=== PATIENT | male | born 1995 | race Two or more races ===

== ENCOUNTER 2021-08-26 13:31 | Observation (INO) ==
[2021-08-26] MEDS ORDERED: SODIUM CHLORIDE 0.9% 1000ML 1,000 ML IV SCH (13:33)
[2021-08-26 13:48] LABS: Basophils # (auto) 0.04 K/uL (0-0.2); Basophils % (auto) 0.2 %; Eosinophils # (auto) 0.01 K/uL (0-0.5); Eosinophils % (auto) 0.1 %; Hematocrit (blood only) 45.4 % (42-52); Hemoglobin 16.4 g/dL (14.0-18.0); Immature Granulocytes # (auto) 0.03 K/uL (0.00-0.02); Immature Granulocytes % (auto) 0.2 %; Lymphocytes # (auto) 2.31 K/uL (1.2-3.4); Lymphocytes % (auto) 13.1 %; Mean Corpuscular Hemoglobin 33.7 pg (25-34); Mean Corpuscular Hgb Conc 36.1 g/dL (32-36); Mean Corpuscular Volume 93.2 fL (80-100); Mean Platelet Volume 10.5 fL (7.4-10.4); Monocytes # (auto) 1.39 K/uL (0.11-0.59); Monocytes % (auto) 7.9 %; Neutrophils # (auto) 13.83 K/uL (1.4-6.5); Neutrophils % (auto) 78.5 %; Platelet Count 229 K/uL (130-400); RDW Coefficient of Variation 12.8 % (11.5-14.5); RDW Standard Deviation 43.9 fL (36.4-46.3); Red Blood Count 4.87 M/uL (4.7-6.1); White Blood Count 17.61 K/uL (4.8-10.8)
[2021-08-26] MEDS ORDERED: OPTIRAY 320 125ml IV ONE (14:03)
--- NOTE | 2021-08-26 14:18 | Emergency Department Note ---
Impression & Plan Acute appendicitis, RLQ abdominal pain ED Provider Note NAME: ELLE [id number] CHERYLE AGE: 26 SEX: M : 1995 ARRIVES VIA: Ambulance INFORMANT: Patient ED PROVIDER(S): Mp Alejo DO CHIEF COMPLAINT: Right lower quadrant abdominal pain HPI: Patient is a 26-year-old male who presents to the ER for right lower quadrant abdominal pain. Symptoms started within the past 24 hours. He denies any vomiting. No dysuria, urgency, or frequency. It is worse with movement but improves with rest. Pain is a 5 out of 10. Denies any headache or change in vision. No chest pain or shortness of breath. Patient was sent in from the senior living. No other exacerbating or remitting factors. No previous abdominal surgeries. ROS: See above HPI for pertinent positives & negatives. A total of 10 systems reviewed and were otherwise negative. PAST MEDICAL HISTORY:See Below PAST SURGICAL HISTORY:See Below FAMILY HISTORY:See Below SOCIAL HISTORY:See Below HOME MEDICATIONS:See Below ALLERGIES:See Below VITALS:See Below PHYSICAL EXAMINATION: GENERAL: Sitting up in bed, alert, well appearing, well nourished, no distress, non-toxic EYE EXAM: normal conjunctiva. [PERRL and EOM's grossly intact.] OROPHARYNX: no exudate, no erythema, lips, buccal mucosa, and tongue normal and mucous membranes are moist NECK: supple, no nuchal rigidity, no adenopathy, non-tender LUNGS: Clear to auscultation. Normal chest wall mechanics HEART: no murmurs, S1 normal and S2 normal ABDOMEN: abdomen soft, tender palpation right lower quadrant, normo-active bowel sounds, no masses, no rebound or guarding. UPPER EXTREMITIES: upper extremities are grossly normal. LOWER EXTREMITIES: No pitting edema. NEURO EXAM: Normal sensorium, cranial nerves II-XII grossly intact, normal s peech, no gross weakness of arms, no gross weakness of legs. MEDICAL DECISION MAKING: Patient is a 26-year-old male who presents ER for right lower quadrant abdominal pain sent in by the senior living. On exam he is clearly tender to palpation. Borderline febrile. IV was established blood work is obtained. Labs show leukocytosis 15,000. No significant anemia. BMP with mild hyponatremia 135. LFTs were unremarkable. T bili slightly up at 2.1. Lipase was normal. UA was clean. Covid negative. CT abdomen pelvis shows acute appendicitis. He was given IV fluids but declined morphine. He was given 2 g of cefoxitin. He was updated bedside and. Discussed with general surgery who evaluated him and took him to the OR. Triage Nursing notes reviewed. Limited review of prior medical records performed Vital Signs: reviewed and remarkable for tachy, HTN Differential diagnosis: Differential diagnoses includes but is not limited to gastritis, peptic ulcer disease, GERD, gallbladder disease, pancreatitis, small bowel obstruction, acute coronary syndrome, pericarditis, ischemic bowel, irritable bowel disease, ir ritable bowel syndrome, appendicitis, diverticulitis, malignancy, hernia, urinary tract infection, torsion, perforation, trauma, infectious. ER treatment provided: See below Diagnostics interpreted by me: ECG: none Cardiac Monitoring: An order was placed for continuous cardiac monitoring. The monitor shows a rate of 92 with sinus rhythm. Laboratory studies: As stated above and show below. Imaging studies: CT abdomen pelvis shows acute appendicitis Consultation(s): This with general surgery for further evaluation Procedures: none Critical Care: None Past Med/Surg History Medical History (Updated 08/26/21 @ 15:53 by Mp Alejo DO) Asthma Social History Smoking Status: Never smoker Tobacco Type: E-cigarettes / Vaping Communication Tools: IPad Feels Safe at Home: Yes Allergies Allergies Allergy/AdvReac Type Severity Reaction Status Date / Time No Known Drug Allergies Allergy Unknown Unknown Unverified 08/26/21 15:42 shellfish derived Allergy Verified 08/26/21 15:42 Home Meds Home Medications Medication Instructions Recorded Confirmed levalbuterol tartrate 45 2 inh INHALATION Q6H PRN 08/26/21 08/26/21 mcg/actuation aerosol inhaler (Xopenex HFA) Results & Data (ED) Vital Signs Vital Signs - 24 hr 08/26/21 13:25 08/26/21 14:43 08/26/21 15:45 Temperature 37.6 C H Temperature Source Oral Pulse Rate 102 H 77 Pulse Rate [Finger] 80 Pulse Rhythm Regular Pulse Rhythm [Finger] Regular Pulse Strength [Finger] Normal Respiratory Rate 20 18 18 Respiratory Effort / Characteristics Non-Labored Non-Labored Respiratory Depth Normal Normal Blood Pressure 143/74 H Blood Pressure [Right Arm] 165/100 H Blood Pressure Mean 97 Blood Pressure Mean [Right Arm] 121 Blood Pressure Position [Right Arm] Lying Pulse Oximetry 98 99 99 Oxygen Delivery Method Room Air Room Air Room Air Sepsis Recent Fever Within 48 Hours No Sepsis New/Unexplained Change in Mental Status N/A Sepsis Action Taken by Nursing No Action Required Laboratory Data Result diagrams: 08/26/21 13:40 08/26/21 13:40 Lab Results 08/26/21 08/26/21 08/26/21 Range/Units 13:40 13:40 13:45 WBC 17.61 H (4.8-10.8) K/uL RBC 4.87 (4.7-6.1) M/uL Hgb 16.4 (14.0-18.0) g/dL POC Hgb 15.6 (14.0-18.0) g/dl Hct 45.4 (42-52) % POC Hct 46 (42-52) % MCV 93.2 (80-100) fL MCH 33.7 (25-34) pg MCHC 36.1 H (32-36) g/dL RDW Std Deviation 43.9 (36.4-46.3) fL RDW Coeff of Veronika 12.8 (11.5-14.5) % Plt Count 229 (130-400) K/uL MPV 10.5 H (7.4-10.4) fL Immature Gran % (Auto) 0.2 % Neut % (Auto) 78.5 % Lymph % (Auto) 13.1 % Mcintosh % (Auto) 7.9 % Eos % (Auto) 0.1 % Baso % (Auto) 0.2 % Neut # (Auto) 13.83 H (1.4-6.5) K/uL Lymph # (Auto) 2.31 (1.2-3.4) K/uL Mc[place]osh # (Auto) 1.39 H (0.11-0.59) K/uL Eos # (Auto) 0.01 (0-0.5) K/uL Baso # (Auto) 0.04 (0-0.2) K/uL Immature Gran # (Auto) 0.03 H (0.00-0.02) K/uL POC Sodium 139 (135-144) mmol/L Sodium 135 L (136-145) mmol/L POC Potassium 3.7 (3.3-5.0) mmol/L Potassium 3.7 (3.5-5.1) mmol/L POC Chloride 99 L (101-112) mmol/L Chloride 102 (98-107) mmol/L Carbon Dioxide 28 (21-32) mmol/L POC Total CO2 26 (24-31) mmol/L Anion Gap 5 (3-11) POC Anion Gap 18.0 (16-25) mmol/L POC BUN 10 (7-18) mg/dl BUN 10 (6-23) mg/dl Creatinine 0.86 (0.6-1.4) mg/dl POC Creatinine 0.9 (0.6-1.3) mg/dl Est Cr Clr Drug Dosing 193.2 ml/min Est GFR ( Amer) 139.7 ml/min Est GFR (Non-Af Amer) 120.5 ml/min BUN/Creatinine Ratio 11.6 (10-20) Glucose 128 H (70-99(Fasting)) mg/dl POC Glucose (other) 132 H (70-99) mg/dl Calcium 9.9 (8.5-10.1) mg/dl POC Ioniz Calcium Na 1.27 (1.12-1.32) mmol/l Total Bilirubin 2.1 H (0.2-1.0) mg/dl AST 28 (13-39) U/L ALT 60 H (7-52) U/L Alkaline Phosphatase 94 (34-104) U/L Total Protein 7.5 (6.0-8.3) gm/dl Albumin 4.3 (3.4-5.0) gm/dl Globulin 3.2 (2.5-4.0) gm/dl Albumin/Globulin Ratio 1.3 (0.9-2) Lipase 20 (11-82) U/L Urine Color Urine Appearance (Clear) Urine pH (4.5-7.5) Ur Specific [place] (1.000-1.030) Urine Protein (Negative) Urine Glucose (UA) (Negative) Urine Ketones (Negative) Urine Blood (Negative) Urine Nitrite (Negative) Urine Bilirubin (Negative) Urine Urobilinogen (Negative) Ur Leukocyte Esterase (Negative) SARS-CoV-2, RNA, NAAT (NEGATIVE) 08/26/21 08/26/21 Range/Units 14:55 14:55 WBC (4.8-10.8) K/uL RBC (4.7-6.1) M/uL Hgb (14.0-18.0) g/dL POC Hgb (14.0-18.0) g/dl Hct (42-52) % POC Hct (42-52) % MCV (80-100) fL MCH (25-34) pg MCHC (32-36) g/dL RDW Std Deviation (36.4-46.3) fL RDW Coeff of Veronika (11.5-14.5) % Plt Count (130-400) K/uL MPV (7.4-10.4) fL Immature Gran % (Auto) % Neut % (Auto) % Lymph % (Auto) % Mcintosh % (Auto) % Eos % (Auto) % Baso % (Auto) % Neut # (Auto) (1.4-6.5) K/uL Lymph # (Auto) (1.2-3.4) K/uL [place]osh # (Auto) (0.11-0.59) K/uL Eos # (Auto) (0-0.5) K/uL Baso # (Auto) (0-0.2) K/uL Immature Gran # (Auto) (0.00-0.02) K/uL POC Sodium (135-144) mmol/L Sodium (136-145) mmol/L POC Potassium (3.3-5.0) mmol/L Potassium (3.5-5.1) mmol/L POC Chloride (101-112) mmol/L Chloride (98-107) mmol/L Carbon Dioxide (21-32) mmol/L POC Total CO2 (24-31) mmol/L Anion Gap (3-11) POC Anion Gap (16-25) mmol/L POC BUN (7-18) mg/dl BUN (6-23) mg/dl Creatinine (0.6-1.4) mg/dl POC Creatinine (0.6-1.3) mg/dl Est Cr Clr Drug Dosing ml/min Est GFR ( Amer) ml/min Est GFR (Non-Af Amer) ml/min BUN/Creatinine Ratio (10-20) Glucose (70-99(Fasting)) mg/dl POC Glucose (other) (70-99) mg/dl Calcium (8.5-10.1) mg/dl POC Ioniz Calcium Na (1.12-1.32) mmol/l Total Bilirubin (0.2-1.0) mg/dl AST (13-39) U/L ALT (7-52) U/L Alkaline Phosphatase (34-104) U/L Total Protein (6.0-8.3) gm/dl Albumin (3.4-5.0) gm/dl Globulin (2.5-4.0) gm/dl Albumin/Globulin Ratio (0.9-2) Lipase (11-82) U/L Urine Color Yellow Urine Appearance Clear (Clear) Urine pH 7.0 (4.5-7.5) Ur Specific [place] 1.015 (1.000-1.030) Urine Protein Negative (Negative) Urine Glucose (UA) Negative (Negative) Urine Ketones Negative (Negative) Urine Blood Negative (Negative) Urine Nitrite Negative (Negative) Urine Bilirubin Negative (Negative) Urine Urobilinogen Negative (Negative) Ur Leukocyte Esterase Negative (Negative) SARS-CoV-2, RNA, NAAT NEGATIVE (NEGATIVE) Administered Medications Discontinued Medications Sodium Chloride (Nss 1000ml) 1,000 mls @ 999 mls/hr IV .Q1H1M LIZETTE Stop: 08/26/21 14:33 Last Admin: 08/26/21 14:51 Dose: 999 mls/hr Documented by: [id number] Cefoxitin Sodium (Mefoxin) 2,000 mg in 60 mls @ 100 mls/hr IV NOW STA Stop: 08/26/21 15:00 Last Infusion: 08/26/21 15:24 Dose: 100 mls/hr Documented by: [id number] Admin: 08/26/21 14:48 Dose: 100 mls/hr Documented by: [id number] Ioversol (Optiray 320 125ml) 118 ml IV ONCE ONE Stop: 08/26/21 14:04 Last Admin: 08/26/21 14:04 Dose: 118 ml Documented by: [id number] Ondansetron HCl (Ondansetron Inj 2 Mg/Ml 2 Ml Vial) 4 mg IV NOW STA Stop: 08/26/21 14:26 Last Admin: 08/26/21 14:48 Dose: 4 mg Documented by: [id number] Imaging Data Radiologist's Impression: Abdomen/Pelvis CT 08/26/21 13:32 CT OF THE ABDOMEN AND PELVIS WITH CONTRAST CLINICAL HISTORY: Right lower quadrant abdominal pain. COMPARISON STUDY: None. TECHNIQUE: Following IV administration of 118 mL of Optiray, axial images of the abdomen and pelvis were obtained from the lung bases to the proximal femurs. Images were reviewed in the axial, sagittal, and coronal planes. IV contrast was administered without complication. Automated exposure control was utilized for the study. A dose lowering technique was utilized adhering to the principles of ALARA. CT DOSE: 1609.93 mGy.cm FINDINGS: Lung bases are unremarkable. No pneumatosis, free air or portal venous gas is present. There are suspected bilateral gynecomastia. Hepatic steatosis and hepatomegaly are noted. The spleen, adrenal glands, left kidney and pancreas are unremarkable. 2 mm right renal calculus is present. There are no ureteral calculi and there is no hydronephrosis. There is no evidence for a bowel obstruction. The appendix is mildly dilated, measuring 1 cm in caliber. The appendiceal wall is thickened with periappendiceal stranding. No free air or abscess. No lymphadenopathy is present. Bladder is mildly distended. No acute fracture or suspicious lesion is identified within the visualized skeletal structures. IMPRESSION: 1. Findings consistent with acute appendicitis. No free air or abscess. 2. 2 mm right renal calculus. No ureteral calculi or hydronephrosis. 3. Hepatic steatosis and hepatomegaly. ACT 112: Negative or not required by law. Electronically signed by: Scar Augustin M.D. 08/26/2021 2:17 PM Discharge Plan Visit Data Chief Complaint: Abdominal Pain Stated Complaint: AB PAIN ED Provider: Mp Alejo Discharge Problem: Acute appendicitis, RLQ abdominal pain Forms Stand Alone Forms: My [place] Prescriptions Prescriptions: No Action levalbuterol tartrate [Xopenex HFA] 45 mcg/actuation Hfa Aerosol Inhaler 2 inh INHALATION Q6H PRN (Reason: SOB) RF: 0 Referrals Referrals: Shereen HARTLEY [Primary Care Provider] -
--- NOTE | 2021-08-26 14:18 | CT Scan Report ---
CT OF THE ABDOMEN AND PELVIS WITH CONTRAST CLINICAL HISTORY: Right lower quadrant abdominal pain. COMPARISON STUDY: None. TECHNIQUE: Following IV administration of 118 mL of Optiray, axial images of the abdomen and pelvis w ere obtained from the lung bases to the proximal femurs. Images were reviewed in the axial, sagittal, and coronal planes. IV contrast was administered without complication. Automated exposure control w as utilized for the study. A dose lowering technique was utilized adhering to the principles of CHARLEEN Oconnell. CT DOSE: 1609.93 mGy.cm FINDINGS: Lung bases are unremarkable. No pneumatosis, free air or portal venous gas is present. Ther e are suspected bilateral gynecomastia. Hepatic steatosis and hepatomegaly are noted. The spleen, adr enal glands, left kidney and pancreas are unremarkable. 2 mm right renal calculus is present. There a re no ureteral calculi and there is no hydronephrosis. There is no evidence for a bowel obstruction. The appendix is mildly dilated, measuring 1 cm in caliber. The appendiceal wall is thickened with per iappendiceal stranding. No free air or abscess. No lymphadenopathy is present. Bladder is mildly dist ended. No acute fracture or suspicious lesion is identified within the visualized skeletal structures . IMPRESSION: 1. Findings consistent with acute appendicitis. No free air or abscess. 2. 2 mm right renal calculus. No ureteral calculi or hydronephrosis. 3. Hepatic steatosis and hepatomegaly. ACT 112: Negative or not required by law. Electronically signed by: Scar Augustin M.D. 08/26/2021 2:17 PM
[2021-08-26] MEDS ORDERED: MoRPHine SULFATE 4 MG/ML 1 ML CARP\\VIAL IV STA (14:25)
[2021-08-26] MEDS ORDERED: ONDANSETRON INJ 2 MG/ML 2 ML VIAL IV STA (14:25)
[2021-08-26] MEDS ORDERED: cefOXitin 2,000 MG/60 ML BAG IV STA (14:25)
[2021-08-26 14:27] LABS: Albumin Globulin Ratio 1.3 (0.9-2); Albumin Level 4.3 gm/dl (3.4-5.0); BUN Creatinine Ratio 11.6 (10-20); Bilirubin,Total 2.1 mg/dl (0.2-1.0); Calcium 9.9 mg/dl (8.5-10.1); Creatinine Clr Calc Pharmacy 193.2 ml/min; Est GFR (African American) 139.7 ml/min; Est GFR (Non-African American) 120.5 ml/min; Globulin 3.2 gm/dl (2.5-4.0); Potassium 3.7 mmol/L (3.5-5.1); Total Protein 7.5 gm/dl (6.0-8.3)
--- NOTE | 2021-08-26 14:34 | History & Physical Report ---
Date of Service August 26, 2021 Assessment & Plan (1) Acute appendicitis: (2) RLQ abdominal pain: Admission and Anticipated Discharge Date Admission Date: 26 year-old male from [facility] with 24 hours history of RLQ abdominal pain with associated anorexia. CT scan showing acute appendicitis without perforation or abscess. Leukocytosis of 17K. Examination consistent with appendicitis with tenderness in RLQ. Plan: Discussed with patient CT scan findings, laboratory findings and examination consistent with acute appendicitis. Discussed laparoscopic appendectomy possible open, risks of procedure and expected recovery/restrictions. Dr. Coulter also examined patient and recommend laparoscopic appendectomy. Obtained informed consent preop COVID testing Cefoxitin and IV fluids keep npo Depending on intraoperative findings, likely discharge to shelter tomorrow Dr. Coulter has seen and examined patient, agrees with above. History of Present Illness Chief Complaint: Right lower quadrant abdominal pain Primary Care Provider: [facility] Payal is a 26 year-old male who presented to emergency department from [facility] with 24 hour history of abdominal pain and associated anorexia. History obtained with help of center medical specialist as patient speaks [place]. No fever, chills, nausea, or vomiting. Pain severe initially but now improved. Worse with movement. Denies of any similar pain in the past. Denies of any abdominal surgeries. Last bowel movement was this morning, soft and no blood. No blood in urine but some abdominal pain when trying to urinate this morning. Allergies Allergy/AdvReac Type Severity Reaction Status Date / Time shellfish derived Allergy Verified 08/26/21 15:10 Past Med/Surg History Medical History (Updated 08/26/21 @ 15:12 by Peggy Fernandez PA-C) Asthma Social History Smoking Status: Never smoker Tobacco Type: E-cigarettes / Vaping Communication Tools: IPad Feels Safe at Home: Yes Review of Systems Review of Systems: All systems reviewed & are unremarkable except as noted in HPI & below Physical Exam Constitutional: well developed, well nourished and + obese; no acute distress and not ill appearing Respiratory: normal respiratory effort, lungs clear to auscultation Cardiovascular: RRR, no murmur, no edema Gastrointestinal (Abdomen): Inspection/Auscultation: abdomen normal to in spection and + hypoactive bowel sounds; abdomen not distended and + abnormal bowel sounds Percussion/Palpation: + abdomen tender (RLQ on mild palpation, + Rosvigs sign), + guarding (voluntary in the RLQ) and abdomen soft; abdomen not rigid Skin: no rashes, warm and dry Psychiatric: Orientation: alert and oriented x 3 Results & Data Results & Data ([facility]) Vital Signs (Past 12 Hours) Vital Signs Temp Pulse Resp BP Pulse Ox 08/26/21 13:25 37.6 C H 102 H 20 143/74 H 98 Laboratory Results 08/26/21 08/26/21 Range/Units 13:40 13:40 WBC 17.61 H (4.8-10.8) K/uL RBC 4.87 (4.7-6.1) M/uL Hgb 16.4 (14.0-18.0) g/dL Hct 45.4 (42-52) % MCV 93.2 (80-100) fL MCH 33.7 (25-34) pg MCHC 36.1 H (32-36) g/dL RDW Std Deviation 43.9 (36.4-46.3) fL RDW Coeff of Veronika 12.8 (11.5-14.5) % Plt Count 229 (130-400) K/uL MPV 10.5 H (7.4-10.4) fL Immature Gran % (Auto) 0.2 % Neut % (Auto) 78.5 % Lymph % (Auto) 13.1 % [place] % (Auto) 7.9 % Eos % (Auto) 0.1 % Baso % (Auto) 0.2 % Neut # (Auto) 13.83 H (1.4-6.5) K/uL Lymph # (Auto) 2.31 (1.2-3.4) K/uL [place] # (Auto) 1.39 H (0.11-0.59) K/uL Eos # (Auto) 0.01 (0-0.5) K/uL Baso # (Auto) 0.04 (0-0.2) K/uL Immature Gran # (Auto) 0.03 H (0.00-0.02) K/uL Sodium 135 L (136-145) mmol/L Potassium 3.7 (3.5-5.1) mmol/L Chloride 102 (98-107) mmol/L Carbon Dioxide 28 (21-32) mmol/L Anion Gap 5 (3-11) BUN 10 (6-23) mg/dl Creatinine 0.86 (0.6-1.4) mg/dl Est Cr Clr Drug Dosing 193.2 ml/min Est GFR ( Amer) 139.7 ml/min Est GFR (Non-Af Amer) 120.5 ml/min BUN/Creatinine Ratio 11.6 (10-20) Glucose 128 H (70-99(Fasting)) mg/dl Calcium 9.9 (8.5-10.1) mg/dl Total Bilirubin 2.1 H (0.2-1.0) mg/dl AST 28 (13-39) U/L ALT 60 H (7-52) U/L Alkaline Phosphatase 94 (34-104) U/L Total Protein 7.5 (6.0-8.3) gm/dl Albumin 4.3 (3.4-5.0) gm/dl Globulin 3.2 (2.5-4.0) gm/dl Albumin/Globulin Ratio 1.3 (0.9-2) Lipase 20 (11-82) U/L Diagnostic Findings CT OF THE ABDOMEN AND PELVIS WITH CONTRAST CLINICAL HISTORY: Right lower quadrant abdominal pain. COMPARISON STUDY: None. TECHNIQUE: Following IV administration of 118 mL of Optiray, axial images of the abdomen and pelvis were obtained from the lung bases to the proximal femurs. Images were reviewed in the axial, sagittal, and coronal planes. IV contrast was administered without complication. Automated exposure control was utilized for the study. A dose lowering technique was utilized adhering to the principles of ALARA. CT DOSE: 1609.93 mGy.cm FINDINGS: Lung bases are unremarkable. No pneumatosis, free air or portal venous gas is present. There are suspected bilateral gynecomastia. Hepatic steatosis and hepatomegaly are noted. The spleen, adrenal glands, left kidney and pancreas are unremarkable. 2 mm right renal calculus is present. There are no ureteral calculi and there is no hydronephrosis. There is no evidence for a bowel obstruction. The appendix is mildly dilated, measuring 1 cm in caliber. The appendiceal wall is thickened with periappendiceal stranding. No free air or abscess. No lymphadenopathy is present. Bladder is mildly distended. No acute fracture or suspicious lesion is identified within the visualized skeletal structures. IMPRESSION: 1. Findings consistent with acute appendicitis. No free air or abscess. 2. 2 mm right renal calculus. No ureteral calculi or hydronephrosis. 3. Hepatic steatosis and hepatomegaly. Code Status & VTE Plan VTE Prophylaxis Plan VTE Prophylaxis will be ordered: Yes
[2021-08-26 14:48] LABS: iSTAT Creatinine 0.9 mg/dl (0.6-1.3); iSTAT Hemoglobin 15.6 g/dl (14.0-18.0); iSTAT Ionized Calcium 1.27 mmol/l (1.12-1.32); iSTAT Potassium 3.7 mmol/L (3.3-5.0)
[2021-08-26 15:10] LABS: Appearance Urine Clear (Clear); Bilirubin Urine Negative (Negative); Blood Urine Negative (Negative); Color Urine Yellow; Glucose Urine UA Negative (Negative); Ketones Urine Negative (Negative); Leukocyte Esterase Urine Negative (Negative); Nitrite Urine Negative (Negative); Protein Urine Negative (Negative); Specific Gravity Urine 1.015 (1.000-1.030); Urobilinogen Urine Negative (Negative)
[2021-08-26] MEDS ORDERED: MIDAZOLAM HCL 1 MG/ML 2ML VIAL ONE (15:21)
[2021-08-26] MEDS ORDERED: fentaNYL citrate 100 MCG/2 ML VIAL ONE ×2 (15:21→16:43)
[2021-08-26] MEDS ORDERED: ACETAMINOPHEN 1000 MG/100 ML IV IV ONE (15:33)
[2021-08-26] MEDS ORDERED: LIDOCAINE 2% 2 ML VIAL/AMP(20MG/ML) INFIL ONE (15:34)
[2021-08-26] MEDS ORDERED: SUCCINYLCHOLINE CHLORIDE 20 MG/ML 10 ML VIAL IV ONE (15:34)
[2021-08-26] MEDS ORDERED: PROPOFOL IV EMULSION 10 MG/ML 20 ML VIAL IV ONE (15:34)
[2021-08-26] MEDS ORDERED: ROCURONIUM BROMIDE 10 MG/ML 5 ML VIAL IV ONE (15:35)
[2021-08-26] MEDS ORDERED: ONDANSETRON INJ 2 MG/ML 2 ML VIAL ONE (15:35)
[2021-08-26] MEDS ORDERED: DEXAMETHASONE SOD INJ 4 MG/ML VIAL ONE (15:35)
[2021-08-26] MEDS ORDERED: EPINEPHrine INJ 1 MG/ML AMP ONE (15:40)
[2021-08-26] MEDS ORDERED: BUPIVACAINE 0.5 % 5 MG/1 ML MPF 30ML VIAL ONE (15:40)
[2021-08-26] MEDS ORDERED: NEOSTIGMINE METHYLSULFATE 1 MG/ML 10ML VIAL ONE (16:52)
[2021-08-26] MEDS ORDERED: GLYCOPYRROLATE 0.2 MG/ML VIAL ONE (16:52)
--- NOTE | 2021-08-26 17:18 | Operative Report ---
Post Operative Report Pre & Post Diagnosis Operation Date: 08/26/21 11:20 Pre-Op Diagnosis: Apenditicitis Post-Op Diagnosis: Apenditicitis I identified the patient and participated in the time-out.: Yes Procedure Operation Date: 08/26/21 11:20 Actual Procedures p Laparoscopic Appendectomy(Not Applicable) - Bruno Coulter MD Surgeon Bruno Coulter MD Account Associate PORSCHE Fernandez assisted with tissue retraction, camera op, closure Estimated Blood Loss 5 Findings Consistent with Post-Op Diagnosis Acute appendicitis without perforation Specimens Appendix Anesthesia Type General Complications No immediate complications Description of Procedure The patient was taken to the operating room, and placed supine on the operating table. A timeout was performed, perioperative antibiotics were administered, SCD boots were placed. After adequate anesthesia and analgesia was obtained, the abdomen was prepped and draped in the normal sterile fashion. A 1 cm incision was made in the supraumbilical region and carried down to the level of the fascia. A trach hook was used to grasp the fascia and elevated and a varies needle was used to enter the abdominal cavity. The abdomen was insufflated to a pressure of 15 mmHg, and a 5 mm trocar was placed in this location. A 5 mm 30 degree laparoscope was placed into the abdominal cavity, and the abdomen was surveyed. The patient was placed in Trendelenburg and slightly to the left. One 5 mm trocar was placed in the right upper quadrant, and one 12 mm trocar was placed in the left lower quadrant under direct visualization. The right colon was identified and traced down to the cecum. The appendix was identified and elevated anteriorly and medially. A window was created at the base of the appendix with a [place] dissector. The Endo SHAMAR stapler was used to transect the appendix at its base through noninflamed tissue, and subsequently the mesoappendix. The appendix was placed in an Endo Catch bag, and removed via the left lower quadrant port site. Attention was turned to hemostasis, which was excellent. The abdomen was copiously irrigated and suctioned free, and again hemostasis was found to be excellent. All trochars removed under direct visualization. The abdomen was desufflated. The fascia in the 12 mm port site was closed with a 0 Vicryl suture. The skin was closed with a running 4-0 Monocryl subcuticular stitch. Dermabond was applied. The patient tolerated the procedure without complication, and was transferred in stable condition to the PACU. All instrument, needle, and sponge counts were correct at the end of the case. My assistant to the ceo was necessary throughout the procedure for tissue retraction, possible camera operation, and closure of the wounds. I understand that section 1842(b)(7)(D) of the Social Security act generally prohibits Medicare physician fee schedule payment for the services of assistants at surgery in teaching hospitals when qualified residents are available to furnish such services. I certify that the services for which payment is claimed were medically necessary and that no qualified resident was available to perform the services. I further understand that these services are subject to postpayment review by the Medicare carrier. I attest to the content of the Intraoperative Record and any orders documented therein. Any exceptions are noted below.
--- NOTE | 2021-08-26 17:18 | Post Operative Brief Note ---
Immediate Post Op Note v1 Date of Surgery August 26, 2021 Pre & Post Diagnosis Operation Date: 08/26/21 11:20 Pre-Op Diagnosis: Apenditicitis Post-Op Diagnosis: Apenditicitis I identified the patient and participated in the time-out.: Yes Procedure Operation Date: 08/26/21 11:20 Actual Procedures p Laparoscopic Appendectomy(Not Applicable) - Bruno Coulter MD Surgeon Bruno Coulter MD Plating Equipment Tender PORSCHE Fernandez assisted with tissue retraction, camera op, closure Estimated Blood Loss 5 Findings Consistent with Post-Op Diagnosis Drains Olivia Catheter
[2021-08-26] MEDS ORDERED: ePHEDrine sulfate 50 MG/ML AMP IV PRN (17:22)
[2021-08-26] MEDS ORDERED: ATROPINE SULFATE 0.1 MG/ML 10ML SYR IV PRN (17:22)
[2021-08-26] MEDS ORDERED: ONDANSETRON INJ 2 MG/ML 2 ML VIAL IV PRN ×2 (17:22→18:33)
[2021-08-26] MEDS ORDERED: PROMETHAZINE HCL 6.25 MG in SODIUM CHLORIDE 0.9% 50 ML IV PRN (17:22)
[2021-08-26] MEDS ORDERED: fentaNYL citrate 100 MCG/2 ML VIAL IV PRN (17:22)
--- NOTE | 2021-08-26 17:22 | Anesthesiology Consultation ---
Date of Service August 26, 2021 Assessment & Plan Chart Review Chart Review: Acceptable Risk for Surgery and Patient NOT seen in Pre Admission Testing Consults Requested none ASA ASA2 Proposed Anesthesia Anesthesia Type: General Risk / Benefits Reviewed With: PT / POA / Parent / Guardian, Accepts Plan and Informed Consent Obtained History Surgery Operation Date: 08/26/21 11:20 Proposed Procedures p Laparoscopic Appendectomy - Bruno Coulter MD Height/Weight Height: 6 ft 1 in Weight: 140.2 kg Allergies Allergy/AdvReac Type Severity Reaction Status Date / Time No Known Drug Allergies Allergy Unknown Unknown Unverified 08/26/21 15:42 shellfish derived Allergy Verified 08/26/21 15:42 Medications Home Medications Medication Instructions Recorded Confirmed Last Taken levalbuterol tartrate 45 2 inh INHALATION Q6H PRN 08/26/21 08/26/21 Unknown mcg/actuation aerosol inhaler (Xopenex HFA) NPO Date Last Intake of Fluids: 08/26/21 Time Last Intake of Fluids: 10:00 Date Last Intake of Solids: 08/26/21 Time Last Intake of Solids: 10:00 Past Medical History Medical History (Updated 08/26/21 @ 15:53 by Mp Alejo DO) Asthma Exercise / Class Metabolic Activity II 4-5 Yardwork/Stairs/Walk up hill Past Anesthesia History No Hx of Anesthesia Complications and No Family Hx of Anesthesia Complications History of PONV No Hx of PONV and No Hx of Motion Sickness Social History Smoking Status: Never smoker Physical Exam Vital Signs Last Vital Signs Temp 37 C 08/26/21 15:58 Pulse 78 08/26/21 15:58 Resp 20 08/26/21 15:58 BP 168/101 H 08/26/21 15:58 Pulse Ox 100 08/26/21 15:58 Constitutional + obese ENMT Mouth: no dentition abnormality Thyromental Distance: > or= 3.5 Finger Breadths Mallampati Class: II Neck normal visual inspection Respiratory normal respiratory effort Auscultation: lungs clear to auscultation bilaterally Cardiovascular Rate/Rhythm: regular rate and regular rhythm Psychiatric Orientation: alert Testing Laboratory Results 08/26/21 13:40 08/26/21 13:40 Urine Color Yellow 08/26/21 14:55 Urine Appearance Clear (Clear) 08/26/21 14:55 Urine pH 7.0 (4.5-7.5) 08/26/21 14:55 Ur Specific [place] 1.015 (1.000-1.030) 08/26/21 14:55 Urine Protein Negative (Negative) 08/26/21 14:55 Urine Glucose (UA) Negative (Negative) 08/26/21 14:55 Urine Ketones Negative (Negative) 08/26/21 14:55 Urine Nitrite Negative (Negative) 08/26/21 14:55 Ur Leukocyte Esterase Negative (Negative) 08/26/21 14:55 08/26/21 13:45 POC Glucose (other) 132 H
--- NOTE | 2021-08-26 18:19 | Anesthesiology Progress Note ---
Date of Service August 26, 2021 Anesthesia Post Procedure Vital Signs Vital Signs: Temp Pulse Pulse Pulse Resp BP BP 08/26/21 18:05 36.4 C L 81 16 131/72 08/26/21 17:55 63 16 130/69 08/26/21 17:45 62 16 132/73 08/26/21 17:35 36.3 C L 72 16 115/79 08/26/21 15:58 37 C 78 20 168/101 H 08/26/21 15:45 80 18 165/100 H 08/26/21 14:43 77 18 08/26/21 13:25 37.6 C H 102 H 20 143/74 H Pulse Ox 08/26/21 18:05 93 08/26/21 17:55 94 08/26/21 17:45 94 08/26/21 17:35 94 08/26/21 15:58 100 08/26/21 15:45 99 08/26/21 14:43 99 08/26/21 13:25 98 Transfer of Care Handoff Completed per policy Notes Mental Status: alert / awake / arousable Patient Amnestic to Procedure: Yes Nausea / Vomiting: adequately controlled Pain: adequately controlled Airway Patency, RR, SpO2: stable & adequate BP & HR: stable & adequate Hydration State: stable & adequate Anesthetic Complications: no major complications apparent
[2021-08-26] MEDS ORDERED: MoRPHine SULFATE 4 MG/ML 1 ML CARP\\VIAL IV PRN (18:33)
[2021-08-26] MEDS ORDERED: PROMETHAZINE HCL 12.5 MG in SODIUM CHLORIDE 0.9% 50 ML IV PRN (18:33)
[2021-08-26] MEDS ORDERED: KETOROLAC 30 MG/ML VIAL IV PRN (18:33)
[2021-08-26] MEDS ORDERED: diphenhydrAMINE Capsule 25 MG CAP PO PRN (18:33)
[2021-08-26] MEDS: oxyCODONE/ACETAMINOPHEN 5mg/325mg TAB PO PRN (23:18)
[2021-08-27] MEDS ORDERED: ENOXAPARIN INJ 40 MG/0.4 ML SYR SQ SCH (06:00)
[2021-08-27] MEDS: oxyCODONE/ACETAMINOPHEN 5mg/325mg TAB PO PRN (06:01)
--- NOTE | 2021-08-27 10:50 | Surgery Progress Note ---
Date of Service August 27, 2021 Assessment & Plan (1) Acute appendicitis: (2) RLQ abdominal pain: Plan: POD # 1 s/p laparoscopic appendectomy vss, afebrile pain minimal, controlled no n/v tolerating diet Plan: Discharge back to [facility] today discharge instructions provided and reviewed preoperatively f/u [address] Coulter has seen and examined pt. Admission and Anticipated Discharge Date Admission Date: August 26, 2021 Subjective feeling good very little pain tolerating diet no nausea Physical Exam Constitutional: WD/WN, vitals as above no acute distress and not ill appearing Respiratory: normal respiratory effort; no respiratory distress Gastrointestinal (Abdomen): Inspection/Auscultation: abdomen normal to inspection and + abdominal surgical incision (clean , dry, intact with dermabond); abdomen not distended Percussion/Palpation: + abdomen tender (minimal at incision sites) and abdomen soft; no guarding and abdomen not rigid Skin: no rashes, warm and dry Psychiatric: A+Ox3, euthymic affect Results & Data ([facility]) Vital Signs (Past 12 Hours) Vital Signs Temp Pulse Pulse Resp BP Pulse Ox 08/27/21 08:00 36.9 C 69 18 125/72 97 08/27/21 03:50 36.5 C 75 15 114/65 95 08/26/21 23:50 36.8 C 86 16 133/71 95 (1) Acute appendicitis Acute appendicitis type: unspecified acute appendicitis type Qualified Code(s): K35.80 - Unspecified acute appendicitis
--- NOTE | 2021-08-30 08:42 | Discharge Summary ---
Date of Service August 30, 2021 Admission HPI Per Admitting Provider Payal is a 26 year-old male who presented to emergency department from [facility] with 24 hour history of abdominal pain and associated anorexia. History obtained with help of medical transport specialist as patient speaks [place]. No fever, chills, nausea, or vomiting. Pain severe initially but now improved. Worse with movement. Denies of any similar pain in the past. Denies of any abdominal surgeries. Last bowel movement was this morning, soft and no blood. No blood in urine but some abdominal pain when trying to urinate this morning. Principal Diagnosis Acute appendicitis Discharge Data Allergies Allergy/AdvReac Type Severity Reaction Status Date / Time No Known Drug Allergies Allergy Unknown Unknown Unverified 08/26/21 15:42 shellfish derived Allergy Verified 08/26/21 15:42 Consultations 08/26/21 14:25 ED Decision to Admit Stat Procedures Performed Operation Date: 08/26/21 11:20 Actual Procedures p Laparoscopic Appendectomy(Not Applicable) - Bruno Coulter MD Ordered Studies 08/26/21 13:32 CT abd pelvis IV con only Stat Hospital Course (1) Acute appendicitis: Patient was admitted through the emergency department and taken to the operating room for laparoscopic appendicitis, the details of which are dictated in a separate operative note. Postoperatively he was transferred in stable condition to the PACU and subsequently to the floor. DVT prophylaxis was maintained with SCD boots and subcutaneous Lovenox. He is encouraged to ambulate and use his incentive spirometer. Diet was advanced as tolerated. Pain control was effected with IV and oral pain medications. By the date of discharge, postop day 1, he was tolerating regular diet, not requiring IV pain medications, and was discharged in stable condition back to the [facility] facility. He will follow up in 2 weeks. Total Time Total Time Spent Total Time Spent (In Minutes): 30 minutes Discharge Plan Discharge Items [facility] Disposition: [facility] Reason For Visit: ACUTE APPENDICITIS Discharge Diagnosis: Acute appendicitis Activity: Per Instructions section Non-emergency contact: Surgeon Call non-emergency contact if: your pain is worsening, you have a fever, your temperature is above 101, your wound has increased redness, your wound has increased drainage and your wound pain has increased Follow-up/Referrals: [facility] [Primary Care Provider] - Diet: Regular Addtl Attending Provider Instructions: Post-Surgical ~Discharge Instructions Activity Recommendations: - lifting limitation: (10 pounds for 2 weeks), - exercise/sex/sports limit: (nonstrenuous for 2 weeks), - driving or machine use limit: (none for 1 week), - Shower/bathe limit: (may shower, no submerging incisions underwater for 2 weeks) Diet: - Resume previous diet SPECIAL CARE INSTRUCTIONS: - May shower. Let water run over area and pat dry. - Leave surgical glue on incisions, will fall off on its own - Call the surgeon's office with any questions or concerns - - (ex. temperature higher than 101 degrees F, excessive bleeding or pain). MEDICATIONS: - Resume previous medications unless instructed otherwise by your surgeon. - Extra strength Tylenol and Ibuprofen as needed for mild to moderate pain -650 mg Tylenol every 6 hours as needed - Ibuprofen 600 mg every 6 hours as needed (take with food) FOLLOW UP VISIT: - If not already scheduled, please call the office to schedule a two week follow-up appointment. Office number Pending Studies at Discharge: Yes (appendix pathology, will be reviewed at follow up visit) Stand-Alone Forms: My [facility] Skilled Items Patient informed of condition?: Yes DNR: No Discharge Level of Care: Other Communicable Disease: No Discharge Prognosis: Stable Lines: None Urinary Catheter: No Medications and DC Order Prescriptions: Continued levalbuterol tartrate [Xopenex HFA] 45 mcg/actuation Hfa Aerosol Inhaler 2 inh INHALATION Q6H PRN (Reason: SOB) RF: 0 Admission Data Admit Date/Time: 08/26/21 17:22 Attending Provider: Bruno Coulter Admit Provider: Bruno Coulter Primary Care Provider: Shereen HARTLEY Other Providers: Bruno Coulter Other Interventions: Discharge Summary Assessment (RN) Last Done: 08/27/21 11:16
== END 2021-08-27 12:46 ==
LOC: ED 13:31 → 3E 14:51 → OR 14:51